=== PATIENT | male | born 1960 | race African-American/Black ===

== ENCOUNTER 2020-04-11 16:22 | Inpatient (IN) ==
[2020-04-11] MEDS ORDERED: SODIUM CHLORIDE 0.9% 1,000 ML IV STA (16:33)
[2020-04-11] MEDS ORDERED: INSULIN REGULAR 100 UNIT/ML IV STA (16:35)
[2020-04-11 18:02] LABS: Basophils % 0.4 % (0.0-0.8); Eosinophils # 0.1 10*3/uL (0.0-0.87); Eosinophils % 0.9 % (0.00-10.9); Hematocrit 38.7 VOL% (42.0-52.0); Hemoglobin 12.7 GM/DL (14.0-18.0); Immature Granulocytes % 0.4 %; Immature Granulocytes Absolute 0.04 #; Lymphocytes % 22.6 % (21.2-54.2); Mean Corpuscular HGB Conc 32.8 GM/DL (32-36); Mean Corpuscular Volume 87.6 FL (87-102); Mean Platelet Volume 10.7 FL (9.6-12.0); Monocytes % 5.9 % (1.7-12.7); Neutrophils % 69.8 % (38.7-73.9); Platelet Count 238 T/CUMM (130-400); Red Blood Count 4.42 MC/CUMM (3.8-5.5); Red Cell Distribution Width 13.9 % (9.3-17.3); White Blood Count 8.9 T/CUMM (4-12)
[2020-04-11 18:08] LABS: Bilirubin,Urine Negative (Negative); Blood, Urine Negative (Negative); Glucose,Urine (UA) >=500 mg/dL (Negative); Ketones,Urine 20 mg/dL (Negative); Mucus,Urine Occasional /LPF (Occasional); Nitrite,Urine Negative (Negative); Protein,Urine Negative; RBC,Urine 1 /HPF (0-4); Urine Appearance CLEAR (Clear); Urine Color Colorless (Yellow); Urine Urobilinogen < 2.0 EU/DL (0.2-1.0); WBC,Urine 5 /HPF (0-6)
[2020-04-11 18:22] LABS: Albumin 3.4 G/DL (3.4-5.0); Bilirubin,Total 0.8 MG/DL (0.2-1.0); Osmolality,Calculated 307.1 MOS/KG (273-304); Total Protein 7.4 G/DL (6.4-8.3)
[2020-04-11] MEDS ORDERED: GLUCAGON 1 MG VIAL IM PRN ×2 (19:06)
[2020-04-11] MEDS ORDERED: DEXTROSE 50% 25 GM/50 ML VIAL IV PRN ×2 (19:06)
[2020-04-11] MEDS ORDERED: POTASSIUM CHLORIDE RIDER 10 MEQ in PREMIX 1 EACH IV PRN (19:10)
[2020-04-11] MEDS ORDERED: hydrALAZINE 20 MG/1 ML VIAL IV PRN (19:12)
[2020-04-11] MEDS ORDERED: SODIUM CHLORIDE 0.9% 1,000 ML IV SCH (19:30)
[2020-04-11] MEDS ORDERED: SODIUM CHLORIDE 0.9% 2,000 ML IV SCH (19:51)
[2020-04-11] MEDS ORDERED: ENOXAPARIN 40 MG/0.4 ML SYRINGE SUBCUT SCH (21:00)
[2020-04-11] MEDS ORDERED: INSULIN GLARGINE 100 UNIT/ML SUBCUT SCH (21:00)
[2020-04-11] MEDS: INSULIN LISPRO 100 UNIT/ML SUBCUT SCH ×2 (22:00→23:57)
[2020-04-11 23:31] LABS: Calcium 8.8 MG/DL (8.5-10.1); Osmolality,Calculated 303.5 MOS/KG (273-304)
[2020-04-11] MEDS ORDERED: HEPARIN 5,000 UNIT/1 ML VIAL IV PRN (23:38)
[2020-04-12] MEDS ORDERED: SODIUM CHLORIDE 0.9% 2,000 ML IV ONE (00:30)
[2020-04-12] MEDS ORDERED: INSULIN GLARGINE 100 UNIT/ML SUBCUT SCH ×2 (00:30→16:55)
[2020-04-12] MEDS: INSULIN GLARGINE 100 UNIT/ML SUBCUT SCH ×2 (00:51→01:00)
[2020-04-12] MEDS: METOPROLOL SUCCINATE XL 25 MG TABLET PO SCH ×3 (01:56→21:26)
[2020-04-12] MEDS: AMITRIPTYLINE 25 MG TABLET PO SCH ×3 (01:56→21:26)
[2020-04-12] MEDS: HEPARIN DRIP 25,000 UNITS/500 ML PREMIX IV SCH ×2 (01:57→19:51)
[2020-04-12 03:14] LABS: Basophils # 0.1 10*3/uL (0.0-0.2); Basophils % 0.7 % (0.0-0.8); Eosinophils # 0.1 10*3/uL (0.0-0.87); Eosinophils % 1.4 % (0.00-10.9); Hematocrit 39.1 VOL% (42.0-52.0); Hemoglobin 12.5 GM/DL (14.0-18.0); Immature Granulocytes % 0.1 %; Immature Granulocytes Absolute 0.01 #; Lymphocytes # 2.5 10*3/uL (1.4-4.0); Lymphocytes % 33.7 % (21.2-54.2); Mean Corpuscular Volume 88.7 FL (87-102); Mean Platelet Volume 11.2 FL (9.6-12.0); Monocytes % 5.6 % (1.7-12.7); Neutrophils % 58.5 % (38.7-73.9); Platelet Count 114 T/CUMM (130-400); Red Blood Count 4.41 MC/CUMM (3.8-5.5); White Blood Count 7.4 T/CUMM (4-12)
[2020-04-12 03:35] LABS: Calcium 8.5 MG/DL (8.5-10.1); Osmolality,Calculated 291.4 MOS/KG (273-304)
[2020-04-12 03:54] LABS: Risk Ratio 4.12; Thyroid Stimulating Hormone 1.19 uIU/ml (0.358-3.74)
[2020-04-12 04:11] LABS: Anisocytosis 1+; Lymphocytes 33 % (20-55); Segmented Neutrophils 64 % (50-85); Total Cells Counted 100
[2020-04-12 04:12] LABS: Platelet Estimate Adequate
[2020-04-12] MEDS: INSULIN LISPRO 100 UNIT/ML SUBCUT SCH ×4 (08:44→21:26)
[2020-04-12] MEDS: ASPIRIN EC 81 MG TABLET PO SCH (08:44)
[2020-04-12 10:26] LABS: Calcium 8.9 MG/DL (8.5-10.1)
[2020-04-12] MEDS ORDERED: GLUCAGON 1 MG VIAL IM PRN (11:05)
[2020-04-12] MEDS ORDERED: DEXTROSE 50% 25 GM/50 ML VIAL IV PRN (11:05)
[2020-04-12 15:40] LABS: PT Patient Result 10.5 SECS (9.8-11.9)
[2020-04-12] MEDS ORDERED: INSULIN LISPRO 100 UNIT/ML SUBCUT SCH ×3 (17:00)
[2020-04-12 23:07] LABS: PT Patient Result 10.3 SECS (9.8-11.9)
[2020-04-12 23:14] LABS: Partial Thromboplastin Time 77.3 SECS (23.9-33.8)
[2020-04-13 06:50] LABS: Basophils % 0.5 % (0.0-0.8); Eosinophils # 0.1 10*3/uL (0.0-0.87); Eosinophils % 1.2 % (0.00-10.9); Hematocrit 36.1 VOL% (42.0-52.0); Immature Granulocytes % 0.5 %; Immature Granulocytes Absolute 0.03 #; Mean Corpuscular HGB Conc 33.2 GM/DL (32-36); Mean Platelet Volume 11.1 FL (9.6-12.0); Monocytes % 6.4 % (1.7-12.7); Neutrophils % 61.4 % (38.7-73.9); Platelet Count 186 T/CUMM (130-400); White Blood Count 6.6 T/CUMM (4-12)
[2020-04-13 06:58] LABS: PT Patient Result 10.4 SECS (9.8-11.9)
[2020-04-13 06:59] LABS: Partial Thromboplastin Time 67.7 SECS (23.9-33.8)
[2020-04-13 07:13] LABS: Calcium 8.5 MG/DL (8.5-10.1); Osmolality,Calculated 289.5 MOS/KG (273-304)
[2020-04-13] MEDS ORDERED: INSULIN GLARGINE 100 UNIT/ML SUBCUT SCH (07:43)
[2020-04-13] MEDS: METOPROLOL SUCCINATE XL 25 MG TABLET PO SCH ×2 (09:25→20:18)
[2020-04-13] MEDS: INSULIN LISPRO 100 UNIT/ML SUBCUT SCH ×7 (09:25→20:22)
[2020-04-13] MEDS: ASPIRIN EC 81 MG TABLET PO SCH (09:25)
[2020-04-13] MEDS: AMITRIPTYLINE 25 MG TABLET PO SCH ×2 (09:25→20:20)
[2020-04-13 13:27] LABS: PT Patient Result 10.3 SECS (9.8-11.9)
[2020-04-13 13:28] LABS: Partial Thromboplastin Time 63.5 SECS (23.9-33.8)
[2020-04-13] MEDS: oxyCODONE/ACETAMINOPHEN 5-325 MG TABLET PO PRN (20:16)
[2020-04-14] MEDS: HEPARIN DRIP 25,000 UNITS/500 ML PREMIX IV SCH (04:08)
[2020-04-14 04:16] LABS: Basophils % 0.5 % (0.0-0.8); Eosinophils # 0.1 10*3/uL (0.0-0.87); Eosinophils % 0.8 % (0.00-10.9); Hematocrit 36.8 VOL% (42.0-52.0); Hemoglobin 11.9 GM/DL (14.0-18.0); Immature Granulocytes % 0.5 %; Immature Granulocytes Absolute 0.04 #; Lymphocytes # 1.3 10*3/uL (1.4-4.0); Lymphocytes % 16.6 % (21.2-54.2); Mean Corpuscular HGB Conc 32.3 GM/DL (32-36); Mean Corpuscular Volume 88.2 FL (87-102); Mean Platelet Volume 10.2 FL (9.6-12.0); Monocytes % 7.9 % (1.7-12.7); Neutrophils % 73.7 % (38.7-73.9); Platelet Count 167 T/CUMM (130-400); Red Blood Count 4.17 MC/CUMM (3.8-5.5); Red Cell Distribution Width 13.8 % (9.3-17.3)
[2020-04-14 04:38] LABS: Calcium 8.8 MG/DL (8.5-10.1); Osmolality,Calculated 281.8 MOS/KG (273-304)
[2020-04-14] MEDS: oxyCODONE/ACETAMINOPHEN 5-325 MG TABLET PO PRN ×2 (05:19→22:12)
[2020-04-14 06:08] LABS: Anisocytosis 1+; Platelet Estimate Normal
[2020-04-14] MEDS ORDERED: MAGNESIUM HYDROXIDE SUSP 30 ML UDCUP PO PRN (08:58)
[2020-04-14] MEDS ORDERED: BISACODYL 5 MG TABLET PO PRN (08:58)
[2020-04-14] MEDS: INSULIN LISPRO 100 UNIT/ML SUBCUT SCH ×7 (08:59→22:14)
[2020-04-14] MEDS: ASPIRIN EC 81 MG TABLET PO SCH (08:59)
[2020-04-14] MEDS: METOPROLOL SUCCINATE XL 25 MG TABLET PO SCH ×2 (08:59→22:12)
[2020-04-14] MEDS: AMITRIPTYLINE 25 MG TABLET PO SCH ×2 (08:59→22:12)
[2020-04-14] MEDS ORDERED: FAMOTIDINE 20 MG/2 ML VIAL IV ONE (09:30)
[2020-04-14] MEDS ORDERED: METOCLOPRAMIDE 10 MG/2 ML VIAL IV ONE (09:31)
[2020-04-14 09:36] LABS: PT Patient Result 11.2 SECS (9.8-11.9); Partial Thromboplastin Time 35.9 SECS (23.9-33.8)
[2020-04-14] MEDS ORDERED: CITRIC ACID/SODIUM CITRATE 30 ML UDCUP PO SCH (10:00)
[2020-04-14] MEDS ORDERED: THROMBIN TOPICAL (RECOMBINANT) 5,000 UNIT VIAL TOP ONE (12:42)
[2020-04-14] MEDS ORDERED: HEPARIN 5,000 UNIT/1 ML VIAL ONE ×2 (12:42→15:37)
[2020-04-14] MEDS ORDERED: CITRIC ACID/SODIUM CITRATE 30 ML UDCUP PO ONE (13:30)
[2020-04-14] MEDS: VANCOMYCIN INJ 1,000 MG in SODIUM CHLORIDE 0.9% 250 ML IV ONE ×2 (17:02→17:37)
[2020-04-14 17:39] LABS: Bilirubin,Urine Negative (Negative); Blood, Urine Moderate mg/dL (Negative); Glucose,Urine (UA) >=500 mg/dL (Negative); Ketones,Urine 5 mg/dL (Negative); Nitrite,Urine Negative (Negative); Protein,Urine Negative; Squamous Epithelial Cell,Urine Occasional /HPF (0-10); Urine Appearance CLEAR (Clear); Urine Color Yellow (Yellow); Urine Specific Gravity 1.017 (1.001-1.035); Urine Urobilinogen < 2.0 EU/DL (0.2-1.0); WBC,Urine 6 /HPF (0-6)
[2020-04-14] MEDS ORDERED: HEPARIN 10,000 UNIT/10 ML VIAL ONE (17:46)
[2020-04-14] MEDS ORDERED: propofoL 200 MG/20 ML VIAL IV ONE (17:46)
[2020-04-14] MEDS ORDERED: SEVOFLURANE 1 UNIT/15 MINUTE INH ONE (17:46)
[2020-04-14] MEDS ORDERED: LIDOCAINE 2% 5 ML VIAL ONE (17:46)
[2020-04-14] MEDS ORDERED: METOPROLOL TARTRATE 5 MG/5 ML VIAL IV ONE (17:47)
[2020-04-14] MEDS ORDERED: GLYCOPYRROLATE 0.4 MG/2 ML VIAL ONE (17:47)
[2020-04-14] MEDS ORDERED: fentaNYL 100 MCG/2 ML VIAL ONE (17:47)
[2020-04-14] MEDS ORDERED: FUROSEMIDE 20 MG/2 ML VIAL ONE (17:47)
[2020-04-14] MEDS ORDERED: SUCCINYLCHOLINE 200 MG/10 ML VIAL ONE (17:47)
[2020-04-14] MEDS ORDERED: ONDANSETRON 4 MG/2 ML VIAL ONE (17:47)
[2020-04-14] MEDS ORDERED: ROCURONIUM 100 MG/10 ML VIAL IV ONE (17:47)
[2020-04-14] MEDS ORDERED: PHENYLEPHRINE 10 MG/1 ML VIAL IV ONE (17:47)
[2020-04-14] MEDS ORDERED: ACETAMINOPHEN 1,000 MG/100 ML VIAL IV ONE (17:47)
[2020-04-14] MEDS ORDERED: ALBUMIN 5% 12.5 GM/250 ML VIAL IV ONE (17:48)
[2020-04-14] MEDS ORDERED: NEOSTIGMINE 10 MG/10 ML VIAL ONE (17:48)
[2020-04-14] MEDS ORDERED: LACTATED RINGERS 2,000 ML IV ONE (17:48)
[2020-04-14] MEDS ORDERED: SODIUM CHLORIDE 0.9% 250 ML IV ONE (17:48)
[2020-04-14] MEDS ORDERED: SODIUM CHLORIDE 0.9% 1,000 ML IV ONE (17:48)
[2020-04-14 18:39] LABS: Hematocrit 33.4 VOL% (42.0-52.0)
[2020-04-14] MEDS: LACTATED RINGERS 1,000 ML IV SCH (18:48)
[2020-04-14] MEDS ORDERED: INSULIN GLARGINE 100 UNIT/ML SUBCUT SCH (21:00)
[2020-04-14] MEDS: DOCUSATE SODIUM 100 MG CAPSULE PO SCH (22:12)
[2020-04-15 05:45] LABS: Basophils % 0.5 % (0.0-0.8); Eosinophils # 0.1 10*3/uL (0.0-0.87); Eosinophils % 0.9 % (0.00-10.9); Hematocrit 34.3 VOL% (42.0-52.0); Hemoglobin 10.8 GM/DL (14.0-18.0); Immature Granulocytes % 0.6 %; Immature Granulocytes Absolute 0.05 #; Lymphocytes # 1.5 10*3/uL (1.4-4.0); Mean Corpuscular HGB Conc 31.5 GM/DL (32-36); Mean Corpuscular Volume 89.6 FL (87-102); Mean Platelet Volume 11.1 FL (9.6-12.0); Monocytes % 8.9 % (1.7-12.7); Neutrophils % 71.1 % (38.7-73.9); Platelet Count 156 T/CUMM (130-400); Red Blood Count 3.83 MC/CUMM (3.8-5.5); Red Cell Distribution Width 14.2 % (9.3-17.3); White Blood Count 8.1 T/CUMM (4-12)
[2020-04-15 06:08] LABS: Band Neutrophils 2 % (0-10); Eosinophils 1 % (0-10); Lymphocytes 22 % (20-55); Nucleated Red Blood Cells 1 (0-5); Platelet Estimate Adequate; Segmented Neutrophils 65 % (50-85); Total Cells Counted 100
[2020-04-15 06:09] LABS: Hypochromasia 1+; Microcytosis Slight
[2020-04-15 06:20] LABS: Calcium 8.6 MG/DL (8.5-10.1); Osmolality,Calculated 281.5 MOS/KG (273-304)
[2020-04-15] MEDS: LACTATED RINGERS 1,000 ML IV SCH (08:51)
[2020-04-15] MEDS: INSULIN LISPRO 100 UNIT/ML SUBCUT SCH ×7 (09:24→21:54)
[2020-04-15] MEDS: ENOXAPARIN 40 MG/0.4 ML SYRINGE SUBCUT SCH (09:25)
[2020-04-15] MEDS: ASPIRIN CHEW 81 MG TABLET PO SCH (09:26)
[2020-04-15] MEDS: METOPROLOL SUCCINATE XL 25 MG TABLET PO SCH ×2 (09:26→21:54)
[2020-04-15] MEDS: AMITRIPTYLINE 25 MG TABLET PO SCH ×2 (09:26→21:54)
[2020-04-15] MEDS: DOCUSATE SODIUM 100 MG CAPSULE PO SCH ×2 (09:26→21:54)
[2020-04-15] MEDS: HYDROmorphone 2 MG/1 ML VIAL IV PRN ×3 (20:41→23:23)
[2020-04-15] MEDS: INSULIN GLARGINE 100 UNIT/ML SUBCUT SCH (21:55)
[2020-04-16] MEDS: HYDROmorphone 2 MG/1 ML VIAL IV PRN ×5 (01:16→21:45)
[2020-04-16 05:59] LABS: Basophils % 0.3 % (0.0-0.8); Eosinophils # 0.1 10*3/uL (0.0-0.87); Eosinophils % 1.3 % (0.00-10.9); Hematocrit 30.9 VOL% (42.0-52.0); Hemoglobin 9.7 GM/DL (14.0-18.0); Immature Granulocytes % 0.8 %; Immature Granulocytes Absolute 0.07 #; Lymphocytes # 1.1 10*3/uL (1.4-4.0); Mean Corpuscular HGB Conc 31.4 GM/DL (32-36); Mean Corpuscular Volume 90.1 FL (87-102); Mean Platelet Volume 11.3 FL (9.6-12.0); Monocytes % 11.9 % (1.7-12.7); Neutrophils % 72.7 % (38.7-73.9); Platelet Count 167 T/CUMM (130-400); Red Blood Count 3.43 MC/CUMM (3.8-5.5); Red Cell Distribution Width 14.2 % (9.3-17.3); White Blood Count 8.7 T/CUMM (4-12)
[2020-04-16 06:22] LABS: Calcium 8.4 MG/DL (8.5-10.1); Osmolality,Calculated 279.5 MOS/KG (273-304)
[2020-04-16 06:42] LABS: Band Neutrophils 17 % (0-10); Eosinophils 3 % (0-10); Lymphocytes 11 % (20-55); Platelet Estimate Normal; Segmented Neutrophils 56 % (50-85); Total Cells Counted 100
[2020-04-16 06:43] LABS: Anisocytosis 1+; Polychromasia Slight
[2020-04-16] MEDS: INSULIN LISPRO 100 UNIT/ML SUBCUT SCH ×7 (09:15→21:44)
[2020-04-16] MEDS: ENOXAPARIN 40 MG/0.4 ML SYRINGE SUBCUT SCH (09:17)
[2020-04-16] MEDS: DOCUSATE SODIUM 100 MG CAPSULE PO SCH ×2 (09:18→21:43)
[2020-04-16] MEDS: METOPROLOL SUCCINATE XL 25 MG TABLET PO SCH ×2 (09:18→21:43)
[2020-04-16] MEDS: ASPIRIN CHEW 81 MG TABLET PO SCH (09:18)
[2020-04-16] MEDS: AMITRIPTYLINE 25 MG TABLET PO SCH ×2 (09:18→21:43)
[2020-04-16] MEDS: ONDANSETRON 4 MG/2 ML VIAL IV PRN ×2 (10:58→15:46)
[2020-04-16] MEDS: RIVAROXABAN 2.5 MG TABLET PO SCH (21:43)
[2020-04-16] MEDS: INSULIN GLARGINE 100 UNIT/ML SUBCUT SCH (21:44)
[2020-04-16 23:41] LABS: HIT Interpretation Negative (Negative)
[2020-04-17] MEDS: HYDROmorphone 2 MG/1 ML VIAL IV PRN ×3 (00:04→04:53)
[2020-04-17 05:11] LABS: Basophils % 0.2 % (0.0-0.8); Eosinophils # 0.1 10*3/uL (0.0-0.87); Eosinophils % 1.4 % (0.00-10.9); Hematocrit 32.1 VOL% (42.0-52.0); Hemoglobin 10.1 GM/DL (14.0-18.0); Immature Granulocytes % 0.6 %; Immature Granulocytes Absolute 0.06 #; Lymphocytes # 1.5 10*3/uL (1.4-4.0); Lymphocytes % 15.9 % (21.2-54.2); Mean Corpuscular HGB Conc 31.5 GM/DL (32-36); Mean Corpuscular Volume 89.9 FL (87-102); Mean Platelet Volume 11.4 FL (9.6-12.0); Monocytes % 11.7 % (1.7-12.7); Neutrophils % 70.2 % (38.7-73.9); Platelet Count 156 T/CUMM (130-400); Red Blood Count 3.57 MC/CUMM (3.8-5.5); Red Cell Distribution Width 14.2 % (9.3-17.3); White Blood Count 9.5 T/CUMM (4-12)
[2020-04-17 05:30] LABS: Band Neutrophils 2 % (0-10); Eosinophils 2 % (0-10); Hypochromasia 1+; Lymphocytes 18 % (20-55); Platelet Estimate Adequate; Segmented Neutrophils 67 % (50-85); Total Cells Counted 100
[2020-04-17 05:31] LABS: Microcytosis Slight; Ovalocytes Slight
[2020-04-17 06:08] LABS: Calcium 8.9 MG/DL (8.5-10.1); Osmolality,Calculated 272.8 MOS/KG (273-304)
[2020-04-17] MEDS: ASPIRIN CHEW 81 MG TABLET PO SCH (09:45)
[2020-04-17] MEDS: METOPROLOL SUCCINATE XL 25 MG TABLET PO SCH (09:45)
[2020-04-17] MEDS: AMITRIPTYLINE 25 MG TABLET PO SCH (09:47)
[2020-04-17] MEDS: oxyCODONE/ACETAMINOPHEN 5-325 MG TABLET PO PRN (09:47)
[2020-04-17] MEDS: DOCUSATE SODIUM 100 MG CAPSULE PO SCH (09:47)
[2020-04-17] MEDS: ENOXAPARIN 40 MG/0.4 ML SYRINGE SUBCUT SCH (09:49)
[2020-04-17] MEDS: RIVAROXABAN 2.5 MG TABLET PO SCH (09:51)
[2020-04-17] MEDS: INSULIN LISPRO 100 UNIT/ML SUBCUT SCH ×4 (10:46→14:26)
[2020-04-17 12:08] VITALS: BP 140/94
== END 2020-04-17 15:01 | DRG 271 ==
LOC: EDBD → EDUNIT# → EDSEX → N.ED 16:22 → N.EDINP 19:06 → SUATTDRO 19:06 → N.TELES 04-12 00:08
PROVIDERS: ADMIT Internal Medicine; ATTEND Internal Medicine Geriatric Medicine
PROC: FASCLOA (2020-04-14 13:19)

== ENCOUNTER 2020-05-15 08:58 | Inpatient (IN) ==
[2020-05-15] MEDS ORDERED: ONDANSETRON 4 MG/2 ML VIAL IV PRN (10:05)
[2020-05-15] MEDS ORDERED: DEXTROSE 50% 25 GM/50 ML VIAL IV PRN (10:05)
[2020-05-15] MEDS ORDERED: GLUCAGON 1 MG VIAL IM PRN (10:05)
[2020-05-15] MEDS ORDERED: ACETAMINOPHEN 325 MG TABLET PO PRN (10:05)
[2020-05-15] MEDS ORDERED: BISACODYL 10 MG SUPP RECTAL PRN (10:09)
[2020-05-15] MEDS ORDERED: ALBUTEROL/IPRATROPIUM 3 ML NEB RESP TX PRN (10:09)
[2020-05-15] MEDS ORDERED: ONDANSETRON 4 MG TABLET PO PRN (10:09)
[2020-05-15] MEDS ORDERED: NITROGLYCERIN SL 0.4 MG TABLET SL PRN (10:09)
[2020-05-15] MEDS ORDERED: MAGNESIUM HYDROXIDE SUSP 30 ML UDCUP PO PRN (10:09)
[2020-05-15 10:47] LABS: Bacteria,Urine Occasional /HPF (Few); Bilirubin,Urine Negative (Negative); Blood, Urine Negative (Negative); Glucose,Urine (UA) Negative (Negative); Ketones,Urine Negative (Negative); Mucus,Urine Occasional /LPF (Occasional); Nitrite,Urine Negative (Negative); Protein,Urine Negative; Squamous Epithelial Cell,Urine Occasional /HPF (0-10); Urine Appearance CLEAR (Clear); Urine Color Yellow (Yellow); Urine Specific Gravity 1.011 (1.001-1.035); Urine Urobilinogen < 2.0 EU/DL (0.2-1.0); WBC,Urine <1 /HPF (0-6)
[2020-05-15 10:56] LABS: Barbiturates Screen,Urine Negative (Negative); Benzodiazepines Screen,Urine Negative (Negative); Cannabinoid Screen,Urine Negative (Negative); Opiate Screen,Urine Positive (Negative); Phencyclidine Screen,Urine Negative (Negative)
[2020-05-15 11:21] LABS: Basophils % 0.2 % (0.0-0.8); Eosinophils # 0.2 10*3/uL (0.0-0.87); Eosinophils % 1.7 % (0.00-10.9); Hematocrit 24.8 VOL% (42.0-52.0); Hemoglobin 7.6 GM/DL (14.0-18.0); Immature Granulocytes % 0.8 %; Immature Granulocytes Absolute 0.11 #; Lymphocytes # 1.6 10*3/uL (1.4-4.0); Lymphocytes % 11.4 % (21.2-54.2); Mean Corpuscular HGB Conc 30.6 GM/DL (32-36); Mean Corpuscular Volume 86.7 FL (87-102); Mean Platelet Volume 8.3 FL (9.6-12.0); Monocytes % 6.2 % (1.7-12.7); Neutrophils % 79.7 % (38.7-73.9); Platelet Count 544 T/CUMM (130-400); Red Blood Count 2.86 MC/CUMM (3.8-5.5); Red Cell Distribution Width 16.1 % (9.3-17.3); White Blood Count 14.3 T/CUMM (4-12)
[2020-05-15] MEDS ORDERED: INSULIN LISPRO 100 UNIT/ML SUBCUT SCH (11:30)
[2020-05-15 11:41] LABS: Eosinophils 3 % (0-10); Lymphocytes 9 % (20-55); Platelet Estimate Adequate; Segmented Neutrophils 83 % (50-85); Total Cells Counted 100
[2020-05-15 11:42] LABS: Hypochromasia 2+; Microcytosis 1+
[2020-05-15 13:15] LABS: Alanine Aminotransferase 36 U/L (16-61); Alkaline Phosphatase 93 U/L (45-117); Aspartate Amino Transferase 21 U/L (0-37); Bilirubin,Total < 0.39 MG/DL (0.2-1.0); Blood Urea Nitrogen 41 MG/DL (7-18); Calcium 9.2 MG/DL (8.5-10.1); Estimated Glom Filtration Rate 66 ML/MIN; Glucose 112 MG/DL (74-106); Osmolality,Calculated 280.1 MOS/KG (273-304); Total Protein 8.5 G/DL (6.4-8.3)
[2020-05-15] MEDS: INSULIN LISPRO 100 UNIT/ML SUBCUT SCH ×2 (16:17→18:23)
[2020-05-15] MEDS: INSULIN REGULAR 100 UNIT/ML SUBCUT SCH ×3 (16:17→20:13)
[2020-05-15] MEDS: GABAPENTIN 300 MG CAPSULE PO SCH ×2 (18:22→21:15)
[2020-05-15] MEDS: metFORMIN 500 MG TABLET PO SCH ×2 (18:22→18:27)
[2020-05-15] MEDS: SODIUM CHLORIDE 0.9% 1,000 ML IV SCH (18:31)
[2020-05-15] MEDS: INSULIN GLARGINE 100 UNIT/ML SUBCUT SCH (20:13)
[2020-05-15] MEDS: RIVAROXABAN 2.5 MG TABLET PO SCH (21:15)
[2020-05-15] MEDS: METOPROLOL SUCCINATE XL 25 MG TABLET PO SCH (21:15)
[2020-05-15] MEDS: DOCUSATE SODIUM 100 MG CAPSULE PO SCH (21:15)
[2020-05-16] MEDS ORDERED: PANTOPRAZOLE 40 MG TABLET PO SCH (09:00)
[2020-05-16] MEDS ORDERED: BUPIVACAINE MPF 0.25% 30 ML VIAL ONE (10:36)
[2020-05-16] MEDS ORDERED: LIDOCAINE 1%/EPI INJ 20 ML VIAL ONE (10:36)
[2020-05-16] MEDS: INSULIN REGULAR 100 UNIT/ML SUBCUT SCH ×4 (10:45→21:47)
[2020-05-16] MEDS: ASPIRIN EC 81 MG TABLET PO SCH (10:46)
[2020-05-16] MEDS: INSULIN LISPRO 100 UNIT/ML SUBCUT SCH ×4 (10:46→17:55)
[2020-05-16] MEDS: DOCUSATE SODIUM 100 MG CAPSULE PO SCH ×2 (10:46→21:21)
[2020-05-16] MEDS: glipiZIDE 5 MG TABLET PO SCH (10:46)
[2020-05-16] MEDS: metFORMIN 500 MG TABLET PO SCH ×2 (10:46→17:55)
[2020-05-16] MEDS: POLYETHYLENE GLYCOL POWDER 17 GM PACK PO SCH (10:47)
[2020-05-16] MEDS: RIVAROXABAN 2.5 MG TABLET PO SCH (10:47)
[2020-05-16] MEDS: METOPROLOL SUCCINATE XL 25 MG TABLET PO SCH ×2 (10:47→21:21)
[2020-05-16] MEDS: SODIUM CHLORIDE 0.9% 1,000 ML IV SCH (10:47)
[2020-05-16] MEDS: lisinopriL 2.5 MG TABLET PO SCH (10:47)
[2020-05-16] MEDS: PANTOPRAZOLE 40 MG TABLET PO SCH (10:47)
[2020-05-16] MEDS: GABAPENTIN 300 MG CAPSULE PO SCH ×3 (10:47→21:21)
[2020-05-16] MEDS: INSULIN GLARGINE 100 UNIT/ML SUBCUT SCH (21:48)
[2020-05-16] MEDS: ACETAMINOPHEN 325 MG TABLET PO PRN (22:06)
[2020-05-17] MEDS: SODIUM CHLORIDE 0.9% 1,000 ML IV SCH ×2 (05:22→21:01)
[2020-05-17] MEDS: INSULIN LISPRO 100 UNIT/ML SUBCUT SCH ×4 (09:41→17:57)
[2020-05-17] MEDS: ASPIRIN EC 81 MG TABLET PO SCH (09:43)
[2020-05-17] MEDS: PANTOPRAZOLE 40 MG TABLET PO SCH (09:43)
[2020-05-17] MEDS: ACETAMINOPHEN 325 MG TABLET PO PRN (09:43)
[2020-05-17] MEDS: METOPROLOL SUCCINATE XL 25 MG TABLET PO SCH ×2 (09:43→21:03)
[2020-05-17] MEDS: MULTIVITAMIN (CENTRUM) TABLET PO SCH (09:43)
[2020-05-17] MEDS: POLYETHYLENE GLYCOL POWDER 17 GM PACK PO SCH (09:44)
[2020-05-17] MEDS: GABAPENTIN 300 MG CAPSULE PO SCH ×3 (09:44→21:03)
[2020-05-17] MEDS: metFORMIN 500 MG TABLET PO SCH ×2 (09:44→17:57)
[2020-05-17] MEDS: DOCUSATE SODIUM 100 MG CAPSULE PO SCH ×2 (09:44→21:03)
[2020-05-17] MEDS: glipiZIDE 5 MG TABLET PO SCH (09:44)
[2020-05-17] MEDS: INSULIN REGULAR 100 UNIT/ML SUBCUT SCH ×4 (09:45→21:06)
[2020-05-17] MEDS: lisinopriL 2.5 MG TABLET PO SCH (12:55)
[2020-05-17] MEDS: INSULIN GLARGINE 100 UNIT/ML SUBCUT SCH (21:00)
[2020-05-18] MEDS: METOPROLOL SUCCINATE XL 25 MG TABLET PO SCH ×2 (08:32→21:14)
[2020-05-18] MEDS: PANTOPRAZOLE 40 MG TABLET PO SCH (08:32)
[2020-05-18] MEDS: metFORMIN 500 MG TABLET PO SCH ×2 (08:32→16:13)
[2020-05-18] MEDS: glipiZIDE 5 MG TABLET PO SCH (08:32)
[2020-05-18] MEDS: ASPIRIN EC 81 MG TABLET PO SCH (08:33)
[2020-05-18] MEDS: INSULIN REGULAR 100 UNIT/ML SUBCUT SCH ×4 (08:33→21:13)
[2020-05-18] MEDS: MULTIVITAMIN (CENTRUM) TABLET PO SCH (08:33)
[2020-05-18] MEDS: DOCUSATE SODIUM 100 MG CAPSULE PO SCH ×2 (08:33→21:13)
[2020-05-18] MEDS: GABAPENTIN 300 MG CAPSULE PO SCH ×3 (08:33→21:14)
[2020-05-18] MEDS: INSULIN LISPRO 100 UNIT/ML SUBCUT SCH ×3 (08:33→16:13)
[2020-05-18] MEDS: lisinopriL 2.5 MG TABLET PO SCH (08:33)
[2020-05-18] MEDS: POLYETHYLENE GLYCOL POWDER 17 GM PACK PO SCH (08:34)
[2020-05-18] MEDS: SODIUM CHLORIDE 0.9% 1,000 ML IV SCH (15:12)
[2020-05-18] MEDS: INSULIN GLARGINE 100 UNIT/ML SUBCUT SCH (21:18)
[2020-05-19] MEDS: ACETAMINOPHEN 325 MG TABLET PO PRN (01:10)
[2020-05-19 07:31] LABS: Basophils % 0.5 % (0.0-0.8); Eosinophils # 0.3 10*3/uL (0.0-0.87); Eosinophils % 3.5 % (0.00-10.9); Hematocrit 25.6 VOL% (42.0-52.0); Hemoglobin 7.8 GM/DL (14.0-18.0); Immature Granulocytes % 0.5 %; Immature Granulocytes Absolute 0.04 #; Lymphocytes % 22.3 % (21.2-54.2); Mean Corpuscular HGB Conc 30.5 GM/DL (32-36); Mean Platelet Volume 8.5 FL (9.6-12.0); Monocytes % 7.5 % (1.7-12.7); Neutrophils % 65.7 % (38.7-73.9); Platelet Count 508 T/CUMM (130-400); Red Blood Count 2.91 MC/CUMM (3.8-5.5); Red Cell Distribution Width 15.9 % (9.3-17.3); White Blood Count 8.8 T/CUMM (4-12)
[2020-05-19 08:01] LABS: Calcium 9.4 MG/DL (8.5-10.1); Osmolality,Calculated 274.7 MOS/KG (273-304)
[2020-05-19] MEDS: SODIUM CHLORIDE 0.9% 1,000 ML IV SCH (10:45)
[2020-05-19] MEDS: MULTIVITAMIN (CENTRUM) TABLET PO SCH (10:46)
[2020-05-19] MEDS: metFORMIN 500 MG TABLET PO SCH ×2 (10:46→16:22)
[2020-05-19] MEDS: INSULIN REGULAR 100 UNIT/ML SUBCUT SCH ×4 (10:46→20:56)
[2020-05-19] MEDS: DOCUSATE SODIUM 100 MG CAPSULE PO SCH ×2 (10:46→20:42)
[2020-05-19] MEDS: ASPIRIN EC 81 MG TABLET PO SCH (10:46)
[2020-05-19] MEDS: INSULIN LISPRO 100 UNIT/ML SUBCUT SCH ×3 (10:46→16:23)
[2020-05-19] MEDS: GABAPENTIN 300 MG CAPSULE PO SCH ×3 (10:47→20:57)
[2020-05-19] MEDS: POLYETHYLENE GLYCOL POWDER 17 GM PACK PO SCH (10:47)
[2020-05-19] MEDS: glipiZIDE 5 MG TABLET PO SCH (10:47)
[2020-05-19] MEDS: METOPROLOL SUCCINATE XL 25 MG TABLET PO SCH ×2 (10:47→20:58)
[2020-05-19] MEDS: lisinopriL 2.5 MG TABLET PO SCH (10:47)
[2020-05-19] MEDS: PANTOPRAZOLE 40 MG TABLET PO SCH (10:47)
[2020-05-19] MEDS: INSULIN GLARGINE 100 UNIT/ML SUBCUT SCH (20:57)
[2020-05-20] MEDS: SODIUM CHLORIDE 0.9% 1,000 ML IV SCH ×2 (03:52→17:05)
[2020-05-20] MEDS: INSULIN REGULAR 100 UNIT/ML SUBCUT SCH ×4 (07:37→21:54)
[2020-05-20 09:03] LABS: Basophils % 0.4 % (0.0-0.8); Eosinophils # 0.3 10*3/uL (0.0-0.87); Eosinophils % 3.3 % (0.00-10.9); Hematocrit 25.8 VOL% (42.0-52.0); Hemoglobin 7.9 GM/DL (14.0-18.0); Immature Granulocytes % 0.4 %; Immature Granulocytes Absolute 0.04 #; Lymphocytes # 1.9 10*3/uL (1.4-4.0); Lymphocytes % 19.2 % (21.2-54.2); Mean Corpuscular HGB Conc 30.6 GM/DL (32-36); Mean Corpuscular Volume 87.8 FL (87-102); Mean Platelet Volume 8.5 FL (9.6-12.0); Monocytes % 6.4 % (1.7-12.7); Neutrophils % 70.3 % (38.7-73.9); Platelet Count 498 T/CUMM (130-400); Red Blood Count 2.94 MC/CUMM (3.8-5.5); Red Cell Distribution Width 16.2 % (9.3-17.3); White Blood Count 9.8 T/CUMM (4-12)
[2020-05-20] MEDS ORDERED: ceFAZolin 2,000 MG in PREMIX 1 EACH IV ONE (09:07)
[2020-05-20] MEDS: ASPIRIN EC 81 MG TABLET PO SCH (09:13)
[2020-05-20] MEDS: MULTIVITAMIN (CENTRUM) TABLET PO SCH (09:13)
[2020-05-20] MEDS: INSULIN LISPRO 100 UNIT/ML SUBCUT SCH ×3 (09:13→16:35)
[2020-05-20] MEDS: lisinopriL 2.5 MG TABLET PO SCH (09:14)
[2020-05-20] MEDS: glipiZIDE 5 MG TABLET PO SCH (09:14)
[2020-05-20] MEDS: METOPROLOL SUCCINATE XL 25 MG TABLET PO SCH ×2 (09:14→21:11)
[2020-05-20] MEDS: PANTOPRAZOLE 40 MG TABLET PO SCH (09:14)
[2020-05-20] MEDS: GABAPENTIN 300 MG CAPSULE PO SCH ×3 (09:14→21:11)
[2020-05-20] MEDS: DOCUSATE SODIUM 100 MG CAPSULE PO SCH ×2 (09:14→21:11)
[2020-05-20] MEDS: POLYETHYLENE GLYCOL POWDER 17 GM PACK PO SCH (09:14)
[2020-05-20] MEDS: metFORMIN 500 MG TABLET PO SCH ×2 (09:39→16:30)
[2020-05-20] MEDS ORDERED: BUPIVACAINE 0.5% 50 ML VIAL ONE (12:29)
[2020-05-20] MEDS ORDERED: DEXTROSE 50% 25 GM/50 ML VIAL IV PRN (13:14)
[2020-05-20] MEDS ORDERED: fentaNYL 100 MCG/2 ML VIAL ONE (13:29)
[2020-05-20] MEDS ORDERED: ONDANSETRON 4 MG/2 ML VIAL ONE (13:29)
[2020-05-20] MEDS ORDERED: propofoL 200 MG/20 ML VIAL IV ONE (13:29)
[2020-05-20] MEDS ORDERED: PHENYLEPHRINE 1 MG/10 ML SYRINGE IV ONE (13:29)
[2020-05-20] MEDS ORDERED: SEVOFLURANE 1 UNIT/15 MINUTE INH ONE (13:29)
[2020-05-20] MEDS ORDERED: ETOMIDATE 40 MG/20 ML VIAL IV ONE (13:29)
[2020-05-20] MEDS ORDERED: LIDOCAINE 2% 5 ML VIAL ONE (13:29)
[2020-05-20] MEDS ORDERED: HYDROmorphone 2 MG/1 ML VIAL ONE (13:30)
[2020-05-20] MEDS: HYDROmorphone 2 MG/1 ML VIAL IV PRN ×4 (13:30→23:21)
[2020-05-20] MEDS: INSULIN GLARGINE 100 UNIT/ML SUBCUT SCH (21:56)
[2020-05-21 06:06] LABS: Basophils # 0.1 10*3/uL (0.0-0.2); Basophils % 0.5 % (0.0-0.8); Eosinophils # 0.4 10*3/uL (0.0-0.87); Eosinophils % 3.9 % (0.00-10.9); Hematocrit 24.3 VOL% (42.0-52.0); Hemoglobin 7.4 GM/DL (14.0-18.0); Immature Granulocytes % 0.4 %; Immature Granulocytes Absolute 0.04 #; Lymphocytes # 1.7 10*3/uL (1.4-4.0); Lymphocytes % 18.3 % (21.2-54.2); Mean Corpuscular HGB Conc 30.5 GM/DL (32-36); Mean Corpuscular Volume 88.7 FL (87-102); Mean Platelet Volume 8.6 FL (9.6-12.0); Neutrophils % 70.9 % (38.7-73.9); Platelet Count 473 T/CUMM (130-400); Red Blood Count 2.74 MC/CUMM (3.8-5.5); Red Cell Distribution Width 16.4 % (9.3-17.3); White Blood Count 9.1 T/CUMM (4-12)
[2020-05-21 06:28] LABS: Band Neutrophils 1 % (0-10); Eosinophils 4 % (0-10); Lymphocytes 26 % (20-55); Platelet Estimate Adequate; Segmented Neutrophils 65 % (50-85); Total Cells Counted 100
[2020-05-21 06:29] LABS: Hypochromasia 2+; Microcytosis 1+
[2020-05-21] MEDS: INSULIN REGULAR 100 UNIT/ML SUBCUT SCH ×4 (08:12→21:33)
[2020-05-21] MEDS: ASPIRIN EC 81 MG TABLET PO SCH (10:28)
[2020-05-21] MEDS: metFORMIN 500 MG TABLET PO SCH ×2 (10:28→18:13)
[2020-05-21] MEDS: INSULIN LISPRO 100 UNIT/ML SUBCUT SCH ×3 (10:28→18:06)
[2020-05-21] MEDS: lisinopriL 2.5 MG TABLET PO SCH (10:29)
[2020-05-21] MEDS: GABAPENTIN 300 MG CAPSULE PO SCH ×3 (10:29→21:31)
[2020-05-21] MEDS: POLYETHYLENE GLYCOL POWDER 17 GM PACK PO SCH (10:29)
[2020-05-21] MEDS: MULTIVITAMIN (CENTRUM) TABLET PO SCH (10:29)
[2020-05-21] MEDS: glipiZIDE 5 MG TABLET PO SCH (10:29)
[2020-05-21] MEDS: METOPROLOL SUCCINATE XL 25 MG TABLET PO SCH ×2 (10:29→21:31)
[2020-05-21] MEDS: PANTOPRAZOLE 40 MG TABLET PO SCH (10:29)
[2020-05-21] MEDS: DOCUSATE SODIUM 100 MG CAPSULE PO SCH ×2 (10:29→21:31)
[2020-05-21] MEDS: HYDROmorphone 2 MG/1 ML VIAL IV PRN (14:17)
[2020-05-21] MEDS: SODIUM CHLORIDE 0.9% 1,000 ML IV SCH (16:23)
[2020-05-21] MEDS: INSULIN GLARGINE 100 UNIT/ML SUBCUT SCH (21:33)
[2020-05-22] MEDS: SODIUM CHLORIDE 0.9% 1,000 ML IV SCH ×2 (02:53→19:32)
[2020-05-22] MEDS: HYDROmorphone 2 MG/1 ML VIAL IV PRN ×4 (09:21→19:30)
[2020-05-22] MEDS: INSULIN REGULAR 100 UNIT/ML SUBCUT SCH ×5 (09:22→22:29)
[2020-05-22] MEDS: POLYETHYLENE GLYCOL POWDER 17 GM PACK PO SCH (09:22)
[2020-05-22] MEDS: INSULIN LISPRO 100 UNIT/ML SUBCUT SCH ×3 (09:22→18:05)
[2020-05-22] MEDS: PANTOPRAZOLE 40 MG TABLET PO SCH (09:23)
[2020-05-22] MEDS: GABAPENTIN 300 MG CAPSULE PO SCH ×3 (09:23→22:26)
[2020-05-22] MEDS: DOCUSATE SODIUM 100 MG CAPSULE PO SCH ×2 (09:23→22:26)
[2020-05-22] MEDS: metFORMIN 500 MG TABLET PO SCH ×2 (09:23→16:31)
[2020-05-22] MEDS: lisinopriL 2.5 MG TABLET PO SCH (09:23)
[2020-05-22] MEDS: METOPROLOL SUCCINATE XL 25 MG TABLET PO SCH ×2 (09:23→22:26)
[2020-05-22] MEDS: MULTIVITAMIN (CENTRUM) TABLET PO SCH (09:23)
[2020-05-22] MEDS: ASPIRIN EC 81 MG TABLET PO SCH (09:24)
[2020-05-22] MEDS: glipiZIDE 5 MG TABLET PO SCH (09:24)
[2020-05-22] MEDS: INSULIN GLARGINE 100 UNIT/ML SUBCUT SCH (22:29)
[2020-05-23] MEDS: HYDROmorphone 2 MG/1 ML VIAL IV PRN ×5 (00:04→13:23)
[2020-05-23] MEDS: lisinopriL 2.5 MG TABLET PO SCH (09:46)
[2020-05-23] MEDS: glipiZIDE 5 MG TABLET PO SCH (09:46)
[2020-05-23] MEDS: PANTOPRAZOLE 40 MG TABLET PO SCH (09:46)
[2020-05-23] MEDS: MULTIVITAMIN (CENTRUM) TABLET PO SCH (09:46)
[2020-05-23] MEDS: GABAPENTIN 300 MG CAPSULE PO SCH (09:46)
[2020-05-23] MEDS: DOCUSATE SODIUM 100 MG CAPSULE PO SCH (09:46)
[2020-05-23] MEDS: metFORMIN 500 MG TABLET PO SCH (09:46)
[2020-05-23] MEDS: POLYETHYLENE GLYCOL POWDER 17 GM PACK PO SCH (09:46)
[2020-05-23] MEDS: INSULIN REGULAR 100 UNIT/ML SUBCUT SCH ×2 (09:47→12:14)
[2020-05-23] MEDS: INSULIN LISPRO 100 UNIT/ML SUBCUT SCH ×2 (09:47→12:14)
[2020-05-23] MEDS: ASPIRIN EC 81 MG TABLET PO SCH (09:47)
[2020-05-23] MEDS: METOPROLOL SUCCINATE XL 25 MG TABLET PO SCH (09:47)
[2020-05-23 13:41] VITALS: BP 118/68
== END 2020-05-23 15:55 | disposition swing bed (61) | DRG 876 ==
LOC: N.OR 08:58 → N.SDSINP 09:05 → N.3E 15:10
PROVIDERS: ADMIT Surgery; ATTEND Surgery

== ENCOUNTER 2020-10-04 10:41 | Inpatient (IN) ==
[2020-10-04 11:55] LABS: Basophils % 0.3 % (0.0-0.8); Eosinophils # 0.1 10*3/uL (0.0-0.87); Eosinophils % 0.7 % (0.00-10.9); Hematocrit 36.9 VOL% (42.0-52.0); Hemoglobin 11.7 GM/DL (14.0-18.0); Immature Granulocytes % 0.5 %; Immature Granulocytes Absolute 0.06 #; Lymphocytes # 1.2 10*3/uL (1.4-4.0); Lymphocytes % 9.1 % (21.2-54.2); Mean Corpuscular HGB Conc 31.7 GM/DL (32-36); Mean Corpuscular Volume 84.4 FL (87-102); Monocytes % 6.1 % (1.7-12.7); Neutrophils % 83.3 % (38.7-73.9); Platelet Count 408 T/CUMM (130-400); Red Blood Count 4.37 MC/CUMM (3.8-5.5); Red Cell Distribution Width 17.5 % (9.3-17.3)
[2020-10-04 12:06] LABS: INR 1.1; PT Patient Result 11.8 SECS (9.8-11.9)
[2020-10-04 12:20] LABS: Alanine Aminotransferase 24 U/L (16-61); Albumin 2.9 G/DL (3.4-5.0); Alkaline Phosphatase 116 U/L (45-117); Aspartate Amino Transferase 35 U/L (0-37); Blood Urea Nitrogen 11 MG/DL (7-18); Calcium 9.1 MG/DL (8.5-10.1); Carbon Dioxide 27 MMOL/L (21-32); Estimated Glom Filtration Rate 140 ML/MIN; Glucose 110 MG/DL (74-106); Potassium 4.5 MMOL/L (3.5-5.1); Sodium 136 MMOL/L (136-145); Total Protein 9.2 G/DL (5.0-7.5); Troponin I < 0.015 NG/ML (0.00-0.045)
[2020-10-04] MEDS ORDERED: VANCOMYCIN INJ 1,000 MG in SODIUM CHLORIDE 0.9% 250 ML IV STA (13:13)
[2020-10-04] MEDS ORDERED: HYDROmorphone 2 MG/1 ML VIAL IV PRN (13:14)
[2020-10-04] MEDS ORDERED: ACETAMINOPHEN 325 MG TABLET PO PRN (13:14)
[2020-10-04] MEDS ORDERED: PIPERACILLIN/TAZOBACTAM 3,375 MG in SODIUM CHLORIDE 0.9% 100 ML IV STA (14:08)
[2020-10-04] MEDS ORDERED: CALCIUM CHLORIDE 1,000 MG/10 ML SYRINGE IV ONE (14:52)
[2020-10-04] MEDS: LACTATED RINGERS 1,000 ML IV SCH (16:25)
[2020-10-04] MEDS: VANCOMYCIN INJ 1,500 MG in SODIUM CHLORIDE 0.9% 500 ML IV SCH (21:27)
[2020-10-05 05:56] LABS: Basophils % 0.2 % (0.0-0.8); Eosinophils # 0.2 10*3/uL (0.0-0.87); Eosinophils % 1.9 % (0.00-10.9); Hemoglobin 10.2 GM/DL (14.0-18.0); Immature Granulocytes % 0.4 %; Immature Granulocytes Absolute 0.04 #; Lymphocytes # 1.6 10*3/uL (1.4-4.0); Lymphocytes % 15.6 % (21.2-54.2); Mean Corpuscular HGB Conc 30.9 GM/DL (32-36); Mean Corpuscular Volume 85.3 FL (87-102); Mean Platelet Volume 8.7 FL (9.6-12.0); Monocytes % 7.2 % (1.7-12.7); Neutrophils % 74.7 % (38.7-73.9); Platelet Count 439 T/CUMM (130-400); Red Blood Count 3.87 MC/CUMM (3.8-5.5); Red Cell Distribution Width 17.2 % (9.3-17.3); White Blood Count 10.2 T/CUMM (4-12)
[2020-10-05 06:18] LABS: Albumin 2.5 G/DL (3.4-5.0); Osmolality,Calculated 274.7 MOS/KG (273-304); Potassium 3.6 MMOL/L (3.5-5.1); Total Protein 8.1 G/DL (5.0-7.5)
[2020-10-05] MEDS: HYDROmorphone 2 MG/1 ML VIAL IV PRN ×4 (07:36→23:44)
[2020-10-05] MEDS: PANTOPRAZOLE 40 MG TABLET PO SCH (08:56)
[2020-10-05] MEDS: VANCOMYCIN INJ 1,500 MG in SODIUM CHLORIDE 0.9% 500 ML IV SCH ×2 (08:56→23:43)
[2020-10-05] MEDS: INSULIN LISPRO 100 UNIT/ML SUBCUT SCH ×2 (12:40→16:54)
[2020-10-05] MEDS: LACTATED RINGERS 1,000 ML IV SCH (13:19)
[2020-10-06] MEDS: INSULIN LISPRO 100 UNIT/ML SUBCUT SCH ×5 (01:08→21:13)
[2020-10-06] MEDS: HYDROmorphone 2 MG/1 ML VIAL IV PRN ×5 (03:12→22:28)
[2020-10-06] MEDS: LACTATED RINGERS 1,000 ML IV SCH ×3 (05:06→22:38)
[2020-10-06] MEDS: PANTOPRAZOLE 40 MG TABLET PO SCH (08:48)
[2020-10-06] MEDS: VANCOMYCIN INJ 1,500 MG in SODIUM CHLORIDE 0.9% 500 ML IV SCH (09:40)
[2020-10-07] MEDS: HYDROmorphone 2 MG/1 ML VIAL IV PRN ×6 (04:23→21:04)
[2020-10-07] MEDS: VANCOMYCIN INJ 1,500 MG in SODIUM CHLORIDE 0.9% 500 ML IV SCH (05:11)
[2020-10-07 05:32] LABS: Calcium 9.2 MG/DL (8.5-10.1); Osmolality,Calculated 273.7 MOS/KG (273-304); Potassium 3.6 MMOL/L (3.5-5.1)
[2020-10-07] MEDS: INSULIN LISPRO 100 UNIT/ML SUBCUT SCH ×4 (08:53→21:47)
[2020-10-07] MEDS: PANTOPRAZOLE 40 MG TABLET PO SCH (09:00)
[2020-10-07] MEDS ORDERED: fentaNYL 100 MCG/2 ML VIAL ONE (10:52)
[2020-10-07] MEDS ORDERED: LACTATED RINGERS 1,000 ML IV SCH (11:00)
[2020-10-07] MEDS ORDERED: ETOMIDATE 40 MG/20 ML VIAL IV ONE (11:06)
[2020-10-07] MEDS ORDERED: LIDOCAINE 2% 5 ML VIAL ONE (11:29)
[2020-10-07] MEDS ORDERED: ROCURONIUM 50 MG/5 ML VIAL IV ONE (11:29)
[2020-10-07] MEDS ORDERED: propofoL 200 MG/20 ML VIAL IV ONE (11:29)
[2020-10-07] MEDS ORDERED: NEOSTIGMINE 10 MG/10 ML VIAL ONE ×3 (11:55)
[2020-10-07] MEDS ORDERED: GLYCOPYRROLATE 0.4 MG/2 ML VIAL ONE (11:55)
[2020-10-07] MEDS: LACTATED RINGERS 1,000 ML IV SCH (12:05)
[2020-10-07] MEDS ORDERED: ONDANSETRON 4 MG/2 ML VIAL IV PRN (13:06)
[2020-10-08] MEDS: VANCOMYCIN INJ 1,500 MG in SODIUM CHLORIDE 0.9% 500 ML IV SCH ×2 (00:04→17:02)
[2020-10-08] MEDS: HYDROmorphone 2 MG/1 ML VIAL IV PRN ×5 (05:56→23:44)
[2020-10-08] MEDS: INSULIN LISPRO 100 UNIT/ML SUBCUT SCH ×4 (07:50→21:38)
[2020-10-08] MEDS: LACTATED RINGERS 1,000 ML IV SCH (08:31)
[2020-10-08] MEDS: PANTOPRAZOLE 40 MG TABLET PO SCH (08:32)
[2020-10-08] MEDS: METOPROLOL SUCCINATE XL 50 MG TABLET PO SCH (08:32)
[2020-10-08] MEDS: LOSARTAN 25 MG TABLET PO SCH (08:32)
[2020-10-09] MEDS: LACTATED RINGERS 1,000 ML IV SCH (01:32)
[2020-10-09] MEDS: HYDROmorphone 2 MG/1 ML VIAL IV PRN ×5 (02:53→18:48)
[2020-10-09] MEDS: LOSARTAN 25 MG TABLET PO SCH (09:13)
[2020-10-09] MEDS: METOPROLOL SUCCINATE XL 50 MG TABLET PO SCH (09:13)
[2020-10-09] MEDS: PANTOPRAZOLE 40 MG TABLET PO SCH (09:13)
[2020-10-09] MEDS: INSULIN LISPRO 100 UNIT/ML SUBCUT SCH ×4 (09:14→20:11)
[2020-10-09] MEDS: VANCOMYCIN INJ 1,500 MG in SODIUM CHLORIDE 0.9% 500 ML IV SCH (12:06)
[2020-10-10] MEDS: LACTATED RINGERS 1,000 ML IV SCH ×2 (03:36→16:22)
[2020-10-10] MEDS: HYDROmorphone 2 MG/1 ML VIAL IV PRN ×3 (03:37→20:23)
[2020-10-10] MEDS: LOSARTAN 25 MG TABLET PO SCH (08:46)
[2020-10-10] MEDS: METOPROLOL SUCCINATE XL 50 MG TABLET PO SCH (08:46)
[2020-10-10] MEDS: PANTOPRAZOLE 40 MG TABLET PO SCH (08:46)
[2020-10-10] MEDS: INSULIN LISPRO 100 UNIT/ML SUBCUT SCH ×4 (09:35→20:23)
[2020-10-10] MEDS: MUPIROCIN 2% OINT 22 GM TUBE TOP SCH (14:42)
[2020-10-11] MEDS: HYDROmorphone 2 MG/1 ML VIAL IV PRN ×5 (00:18→20:08)
[2020-10-11] MEDS: MUPIROCIN 2% OINT 22 GM TUBE TOP SCH ×3 (03:01→21:42)
[2020-10-11] MEDS: LACTATED RINGERS 1,000 ML IV SCH ×3 (06:07→21:41)
[2020-10-11] MEDS: INSULIN LISPRO 100 UNIT/ML SUBCUT SCH ×4 (08:29→21:41)
[2020-10-11] MEDS: PANTOPRAZOLE 40 MG TABLET PO SCH (09:06)
[2020-10-11] MEDS: LOSARTAN 25 MG TABLET PO SCH (09:06)
[2020-10-11] MEDS: METOPROLOL SUCCINATE XL 50 MG TABLET PO SCH (09:06)
[2020-10-12] MEDS: HYDROmorphone 2 MG/1 ML VIAL IV PRN ×5 (00:13→23:09)
[2020-10-12] MEDS: PANTOPRAZOLE 40 MG TABLET PO SCH (09:12)
[2020-10-12] MEDS: METOPROLOL SUCCINATE XL 50 MG TABLET PO SCH (09:12)
[2020-10-12] MEDS: LOSARTAN 25 MG TABLET PO SCH (09:12)
[2020-10-12] MEDS: LACTATED RINGERS 1,000 ML IV SCH (09:56)
[2020-10-12] MEDS: MUPIROCIN 2% OINT 22 GM TUBE TOP SCH ×2 (10:07→20:03)
[2020-10-12] MEDS: INSULIN LISPRO 100 UNIT/ML SUBCUT SCH ×4 (10:08→20:03)
[2020-10-12] MEDS: ENOXAPARIN 40 MG/0.4 ML SYRINGE SUBCUT SCH (12:14)
[2020-10-13] MEDS: HYDROmorphone 2 MG/1 ML VIAL IV PRN ×4 (06:25→21:03)
[2020-10-13] MEDS: INSULIN LISPRO 100 UNIT/ML SUBCUT SCH ×4 (07:59→21:03)
[2020-10-13] MEDS: PANTOPRAZOLE 40 MG TABLET PO SCH (08:30)
[2020-10-13] MEDS: LOSARTAN 25 MG TABLET PO SCH (08:30)
[2020-10-13] MEDS: METOPROLOL SUCCINATE XL 50 MG TABLET PO SCH (08:30)
[2020-10-13] MEDS: MUPIROCIN 2% OINT 22 GM TUBE TOP SCH ×2 (11:48→21:03)
[2020-10-13] MEDS: ENOXAPARIN 40 MG/0.4 ML SYRINGE SUBCUT SCH (15:49)
[2020-10-14] MEDS: HYDROmorphone 2 MG/1 ML VIAL IV PRN ×3 (01:06→20:36)
[2020-10-14] MEDS: INSULIN LISPRO 100 UNIT/ML SUBCUT SCH ×4 (07:53→20:54)
[2020-10-14] MEDS: METOPROLOL SUCCINATE XL 50 MG TABLET PO SCH (08:34)
[2020-10-14] MEDS: LOSARTAN 25 MG TABLET PO SCH (08:34)
[2020-10-14] MEDS: PANTOPRAZOLE 40 MG TABLET PO SCH (08:35)
[2020-10-14] MEDS: MUPIROCIN 2% OINT 22 GM TUBE TOP SCH ×2 (08:36→20:53)
[2020-10-14 10:28] LABS: Basophils % 0.2 % (0.0-0.8); Eosinophils # 0.1 10*3/uL (0.0-0.87); Hematocrit 26.1 VOL% (42.0-52.0); Hemoglobin 8.3 GM/DL (14.0-18.0); Immature Granulocytes % 0.7 %; Immature Granulocytes Absolute 0.08 #; Lymphocytes # 1.1 10*3/uL (1.4-4.0); Lymphocytes % 8.9 % (21.2-54.2); Mean Corpuscular HGB Conc 31.8 GM/DL (32-36); Mean Corpuscular Volume 83.7 FL (87-102); Mean Platelet Volume 9.5 FL (9.6-12.0); Monocytes % 7.4 % (1.7-12.7); Neutrophils % 81.8 % (38.7-73.9); Platelet Count 529 T/CUMM (130-400); Red Blood Count 3.12 MC/CUMM (3.8-5.5); Red Cell Distribution Width 18.4 % (9.3-17.3); White Blood Count 12.2 T/CUMM (4-12)
[2020-10-14 10:42] LABS: Osmolality,Calculated 275.7 MOS/KG (273-304); Potassium 3.7 MMOL/L (3.5-5.1)
[2020-10-14] MEDS: ENOXAPARIN 40 MG/0.4 ML SYRINGE SUBCUT SCH (14:22)
[2020-10-15] MEDS: HYDROmorphone 2 MG/1 ML VIAL IV PRN ×2 (01:55→08:33)
[2020-10-15] MEDS ORDERED: VANCOMYCIN INJ 1,000 MG in SODIUM CHLORIDE 0.9% 250 ML IV ONE (06:00)
[2020-10-15] MEDS: INSULIN LISPRO 100 UNIT/ML SUBCUT SCH ×4 (07:49→21:26)
[2020-10-15] MEDS: PANTOPRAZOLE 40 MG TABLET PO SCH (08:55)
[2020-10-15] MEDS: LOSARTAN 25 MG TABLET PO SCH (08:55)
[2020-10-15] MEDS: MUPIROCIN 2% OINT 22 GM TUBE TOP SCH ×2 (08:55→21:10)
[2020-10-15] MEDS: METOPROLOL SUCCINATE XL 50 MG TABLET PO SCH (08:55)
[2020-10-15] MEDS: ENOXAPARIN 40 MG/0.4 ML SYRINGE SUBCUT SCH (11:56)
[2020-10-15] MEDS ORDERED: fentaNYL 100 MCG/2 ML VIAL ONE (12:03)
[2020-10-15] MEDS ORDERED: MIDAZOLAM 2 MG/2 ML VIAL ONE (12:03)
[2020-10-15] MEDS ORDERED: propofoL 200 MG/20 ML VIAL IV ONE (12:45)
[2020-10-15] MEDS ORDERED: LIDOCAINE 2% 5 ML VIAL ONE (12:45)
[2020-10-15] MEDS ORDERED: ONDANSETRON 4 MG/2 ML VIAL ONE (12:45)
[2020-10-15] MEDS ORDERED: ETOMIDATE 40 MG/20 ML VIAL IV ONE (12:50)
[2020-10-15] MEDS ORDERED: LACTATED RINGERS 1,000 ML IV SCH (13:00)
[2020-10-15] MEDS ORDERED: ESMOLOL 100 MG/10 ML VIAL IV ONE (13:03)
[2020-10-15] MEDS ORDERED: METOPROLOL TARTRATE 5 MG/5 ML VIAL IV ONE (13:15)
[2020-10-15] MEDS ORDERED: ceFAZolin 1,000 MG VIAL ONE (13:27)
[2020-10-15] MEDS ORDERED: PHENYLEPHRINE 1 MG/10 ML SYRINGE IV ONE (13:28)
[2020-10-15] MEDS ORDERED: SEVOFLURANE 1 UNIT/15 MINUTE INH ONE (14:17)
[2020-10-15 14:53] LABS: Hematocrit 28.8 VOL% (42.0-52.0); Hemoglobin 8.7 GM/DL (14.0-18.0)
[2020-10-15] MEDS ORDERED: DEXTROSE 50% 25 GM/50 ML VIAL IV PRN (15:48)
[2020-10-15] MEDS ORDERED: GLUCAGON 1 MG VIAL IM PRN (15:48)
[2020-10-16] MEDS: INSULIN LISPRO 100 UNIT/ML SUBCUT SCH ×4 (07:55→21:32)
[2020-10-16] MEDS: METOPROLOL SUCCINATE XL 50 MG TABLET PO SCH (08:38)
[2020-10-16] MEDS: PANTOPRAZOLE 40 MG TABLET PO SCH (08:38)
[2020-10-16] MEDS: LOSARTAN 25 MG TABLET PO SCH (08:38)
[2020-10-16] MEDS: MUPIROCIN 2% OINT 22 GM TUBE TOP SCH ×2 (08:39→21:33)
[2020-10-16 09:22] LABS: Basophils % 0.2 % (0.0-0.8); Eosinophils # 0.1 10*3/uL (0.0-0.87); Hematocrit 27.2 VOL% (42.0-52.0); Hemoglobin 8.3 GM/DL (14.0-18.0); Immature Granulocytes % 0.6 %; Immature Granulocytes Absolute 0.06 #; Lymphocytes # 1.2 10*3/uL (1.4-4.0); Lymphocytes % 11.4 % (21.2-54.2); Mean Corpuscular HGB Conc 30.5 GM/DL (32-36); Mean Corpuscular Volume 85.3 FL (87-102); Mean Platelet Volume 8.8 FL (9.6-12.0); Neutrophils % 80.8 % (38.7-73.9); Platelet Count 554 T/CUMM (130-400); Red Blood Count 3.19 MC/CUMM (3.8-5.5); Red Cell Distribution Width 18.6 % (9.3-17.3); White Blood Count 10.4 T/CUMM (4-12)
[2020-10-16 09:41] LABS: Calcium 8.8 MG/DL (8.5-10.1); Osmolality,Calculated 274.8 MOS/KG (273-304); Potassium 3.8 MMOL/L (3.5-5.1)
[2020-10-16] MEDS: fentaNYL 2 MCG/ROPIV 0.2% EPID 100 ML EPIDURAL SCH ×2 (10:34→10:35)
[2020-10-16] MEDS: ONDANSETRON 4 MG/2 ML VIAL IV PRN (18:22)
[2020-10-17] MEDS: HYDROmorphone 2 MG/1 ML VIAL IV PRN ×4 (04:34→19:11)
[2020-10-17] MEDS: fentaNYL 2 MCG/ROPIV 0.2% EPID 100 ML EPIDURAL SCH (06:20)
[2020-10-17] MEDS: LOSARTAN 25 MG TABLET PO SCH (10:19)
[2020-10-17] MEDS: METOPROLOL SUCCINATE XL 50 MG TABLET PO SCH (10:19)
[2020-10-17] MEDS: MUPIROCIN 2% OINT 22 GM TUBE TOP SCH ×2 (10:20→21:01)
[2020-10-17] MEDS: PANTOPRAZOLE 40 MG TABLET PO SCH (10:20)
[2020-10-17] MEDS: INSULIN LISPRO 100 UNIT/ML SUBCUT SCH ×4 (10:32→21:01)
[2020-10-18] MEDS: fentaNYL 2 MCG/ROPIV 0.2% EPID 100 ML EPIDURAL SCH (01:22)
[2020-10-18] MEDS: HYDROmorphone 2 MG/1 ML VIAL IV PRN ×2 (04:31→21:09)
[2020-10-18] MEDS: INSULIN LISPRO 100 UNIT/ML SUBCUT SCH ×4 (09:39→21:05)
[2020-10-18] MEDS: MUPIROCIN 2% OINT 22 GM TUBE TOP SCH ×2 (09:40→21:44)
[2020-10-18] MEDS: LOSARTAN 25 MG TABLET PO SCH (09:41)
[2020-10-18] MEDS: METOPROLOL SUCCINATE XL 50 MG TABLET PO SCH (09:41)
[2020-10-18] MEDS: PANTOPRAZOLE 40 MG TABLET PO SCH (10:05)
[2020-10-18] MEDS: ENOXAPARIN 40 MG/0.4 ML SYRINGE SUBCUT SCH (11:52)
[2020-10-18] MEDS: ONDANSETRON 4 MG/2 ML VIAL IV PRN (21:07)
[2020-10-19] MEDS: HYDROmorphone 2 MG/1 ML VIAL IV PRN ×3 (03:50→19:55)
[2020-10-19] MEDS: INSULIN LISPRO 100 UNIT/ML SUBCUT SCH ×4 (08:13→20:33)
[2020-10-19] MEDS: LOSARTAN 25 MG TABLET PO SCH (09:40)
[2020-10-19] MEDS: PANTOPRAZOLE 40 MG TABLET PO SCH (09:40)
[2020-10-19] MEDS: MUPIROCIN 2% OINT 22 GM TUBE TOP SCH ×2 (09:40→20:32)
[2020-10-19] MEDS: METOPROLOL SUCCINATE XL 50 MG TABLET PO SCH (09:40)
[2020-10-19] MEDS: ENOXAPARIN 40 MG/0.4 ML SYRINGE SUBCUT SCH (13:03)
[2020-10-19] MEDS: ONDANSETRON 4 MG/2 ML VIAL IV PRN (14:40)
[2020-10-20] MEDS: HYDROmorphone 2 MG/1 ML VIAL IV PRN ×2 (00:53→07:51)
[2020-10-20] MEDS: INSULIN LISPRO 100 UNIT/ML SUBCUT SCH ×2 (07:55→12:02)
[2020-10-20] MEDS: PANTOPRAZOLE 40 MG TABLET PO SCH (08:11)
[2020-10-20] MEDS: LOSARTAN 25 MG TABLET PO SCH (08:11)
[2020-10-20] MEDS: METOPROLOL SUCCINATE XL 50 MG TABLET PO SCH (08:11)
[2020-10-20] MEDS: MUPIROCIN 2% OINT 22 GM TUBE TOP SCH (09:41)
[2020-10-20] MEDS: ENOXAPARIN 40 MG/0.4 ML SYRINGE SUBCUT SCH (11:39)
[2020-10-20 12:50] VITALS: BP 124/98
== END 2020-10-20 13:20 | DRG 240 ==
LOC: N.ED 10:41 → N.EDINP 13:14 → N.3E 15:37
PROVIDERS: ADMIT Surgery; ATTEND Surgery

== ENCOUNTER 2021-01-22 06:49 | Inpatient (IN) ==
[2021-01-22] MEDS ORDERED: VANCOMYCIN INJ 1,000 MG in SODIUM CHLORIDE 0.9% 250 ML IV ONE (07:00)
[2021-01-22] MEDS ORDERED: ACETAMINOPHEN 500 MG TABLET PO ONE (07:32)
[2021-01-22] MEDS ORDERED: FAMOTIDINE 20 MG TABLET PO ONE (07:32)
[2021-01-22] MEDS: LACTATED RINGERS 1,000 ML IV SCH ×4 (07:50→23:12)
[2021-01-22] MEDS ORDERED: MORPHINE 2 MG/1 ML SYRINGE ONE (08:25)
[2021-01-22] MEDS ORDERED: MORPHINE 2 MG/1 ML SYRINGE IV ONE ×2 (08:26→09:06)
[2021-01-22] MEDS ORDERED: ROCURONIUM 50 MG/5 ML VIAL IV ONE (09:18)
[2021-01-22] MEDS ORDERED: fentaNYL 100 MCG/2 ML VIAL ONE ×2 (09:18→10:34)
[2021-01-22] MEDS ORDERED: LIDOCAINE 2% 5 ML VIAL ONE (09:18)
[2021-01-22] MEDS ORDERED: MIDAZOLAM 2 MG/2 ML VIAL ONE (09:18)
[2021-01-22] MEDS ORDERED: propofoL 200 MG/20 ML VIAL IV ONE (09:18)
[2021-01-22] MEDS ORDERED: ONDANSETRON 4 MG/2 ML VIAL ONE (10:18)
[2021-01-22] MEDS ORDERED: SEVOFLURANE 1 UNIT/15 MINUTE INH ONE ×4 (10:18→10:59)
[2021-01-22] MEDS ORDERED: KETOROLAC 30 MG/1 ML VIAL ONE (10:23)
[2021-01-22] MEDS ORDERED: METOPROLOL TARTRATE 5 MG/5 ML VIAL IV ONE (10:35)
[2021-01-22] MEDS ORDERED: ONDANSETRON 4 MG/2 ML VIAL IV PRN (11:12)
[2021-01-22] MEDS ORDERED: BISACODYL 5 MG TABLET PO PRN (11:12)
[2021-01-22] MEDS ORDERED: ACETAMINOPHEN 325 MG TABLET PO PRN (11:12)
[2021-01-22] MEDS ORDERED: KETOROLAC 10 MG TABLET PO PRN (11:12)
[2021-01-22] MEDS ORDERED: NALOXONE 0.4 MG/ML VIAL IV PRN (11:12)
[2021-01-22] MEDS: HYDROmorphone PCA 30 MG/30 ML SYRINGE IV SCH (12:00)
[2021-01-22] MEDS ORDERED: ALBUTEROL 2.5 MG/3 ML NEB RESP TX PRN (19:00)
[2021-01-22] MEDS: METOPROLOL SUCCINATE XL 50 MG TABLET PO SCH (21:34)
[2021-01-23] MEDS: LACTATED RINGERS 1,000 ML IV SCH ×4 (01:08→12:34)
[2021-01-23 05:10] LABS: Basophils % 0.3 % (0.0-0.8); Eosinophils # 0.1 10*3/uL (0.0-0.87); Eosinophils % 1.2 % (0.00-10.9); Hematocrit 31.7 VOL% (42.0-52.0); Hemoglobin 9.4 GM/DL (14.0-18.0); Immature Granulocytes % 0.6 %; Immature Granulocytes Absolute 0.06 #; Lymphocytes # 1.9 10*3/uL (1.4-4.0); Lymphocytes % 18.6 % (21.2-54.2); Mean Corpuscular HGB Conc 29.7 GM/DL (32-36); Mean Platelet Volume 9.3 FL (9.6-12.0); Monocytes % 9.1 % (1.7-12.7); Neutrophils % 70.2 % (38.7-73.9); Platelet Count 414 T/CUMM (130-400); Red Blood Count 3.82 MC/CUMM (3.8-5.5); Red Cell Distribution Width 17.6 % (9.3-17.3); White Blood Count 10.3 T/CUMM (4-12)
[2021-01-23] MEDS: ENOXAPARIN 40 MG/0.4 ML SYRINGE SUBCUT SCH (05:28)
[2021-01-23 05:32] LABS: Calcium 8.4 MG/DL (8.5-10.1); Osmolality,Calculated 283.3 MOS/KG (273-304); Potassium 3.8 MMOL/L (3.5-5.1)
[2021-01-23 05:33] LABS: Hypochromasia 1+; Microcytosis 1+; Platelet Estimate Adequate
[2021-01-23] MEDS: ASPIRIN CHEW 81 MG TABLET PO SCH (09:16)
[2021-01-23] MEDS: METOPROLOL SUCCINATE XL 50 MG TABLET PO SCH ×2 (09:16→20:42)
[2021-01-23] MEDS: PANTOPRAZOLE 40 MG TABLET PO SCH (09:16)
[2021-01-23] MEDS: LOSARTAN 25 MG TABLET PO SCH (09:16)
[2021-01-23] MEDS: HYDROmorphone PCA 30 MG/30 ML SYRINGE IV SCH (11:30)
[2021-01-23] MEDS: ATORVASTATIN 40 MG TABLET PO SCH (20:42)
[2021-01-24] MEDS: ENOXAPARIN 40 MG/0.4 ML SYRINGE SUBCUT SCH (05:19)
[2021-01-24] MEDS: PANTOPRAZOLE 40 MG TABLET PO SCH (10:07)
[2021-01-24] MEDS: ASPIRIN CHEW 81 MG TABLET PO SCH (10:07)
[2021-01-24] MEDS: LOSARTAN 25 MG TABLET PO SCH (10:07)
[2021-01-24] MEDS: METOPROLOL SUCCINATE XL 50 MG TABLET PO SCH ×2 (10:07→20:50)
[2021-01-24] MEDS: LACTATED RINGERS 1,000 ML IV SCH (12:38)
[2021-01-24] MEDS: NITROGLYCERIN SL 0.4 MG TABLET SL PRN ×3 (18:20→18:34)
[2021-01-24] MEDS: HYDROmorphone PCA 30 MG/30 ML SYRINGE IV SCH (19:45)
[2021-01-24] MEDS: ATORVASTATIN 40 MG TABLET PO SCH (20:50)
[2021-01-25] MEDS: ENOXAPARIN 40 MG/0.4 ML SYRINGE SUBCUT SCH (05:35)
[2021-01-25] MEDS: PANTOPRAZOLE 40 MG TABLET PO SCH (10:03)
[2021-01-25] MEDS: LOSARTAN 25 MG TABLET PO SCH (10:03)
[2021-01-25] MEDS: ASPIRIN CHEW 81 MG TABLET PO SCH (10:03)
[2021-01-25] MEDS: METOPROLOL SUCCINATE XL 50 MG TABLET PO SCH ×2 (10:03→21:13)
[2021-01-25] MEDS: LACTATED RINGERS 1,000 ML IV SCH (17:38)
[2021-01-25] MEDS: ATORVASTATIN 40 MG TABLET PO SCH (21:13)
[2021-01-25] MEDS: HYDROmorphone PCA 30 MG/30 ML SYRINGE IV SCH (22:11)
[2021-01-26] MEDS: ENOXAPARIN 40 MG/0.4 ML SYRINGE SUBCUT SCH (05:59)
[2021-01-26] MEDS: LACTATED RINGERS 1,000 ML IV SCH ×2 (06:47→14:21)
[2021-01-26] MEDS: LOSARTAN 25 MG TABLET PO SCH (08:49)
[2021-01-26] MEDS: ASPIRIN CHEW 81 MG TABLET PO SCH (08:49)
[2021-01-26] MEDS: METOPROLOL SUCCINATE XL 50 MG TABLET PO SCH ×2 (08:49→20:01)
[2021-01-26] MEDS: PANTOPRAZOLE 40 MG TABLET PO SCH (08:49)
[2021-01-26] MEDS: HYDROmorphone PCA 30 MG/30 ML SYRINGE IV SCH (14:21)
[2021-01-26] MEDS: ATORVASTATIN 40 MG TABLET PO SCH (20:01)
[2021-01-27] MEDS: ENOXAPARIN 40 MG/0.4 ML SYRINGE SUBCUT SCH (05:21)
[2021-01-27] MEDS: PANTOPRAZOLE 40 MG TABLET PO SCH (08:46)
[2021-01-27] MEDS: METOPROLOL SUCCINATE XL 50 MG TABLET PO SCH (08:46)
[2021-01-27] MEDS: ASPIRIN CHEW 81 MG TABLET PO SCH (08:46)
[2021-01-27] MEDS: LOSARTAN 25 MG TABLET PO SCH (08:46)
[2021-01-27 11:25] VITALS: BP 152/88
== END 2021-01-27 16:11 | disposition swing bed (61) | DRG 475 ==
LOC: N.OR 06:49 → N.SDSINP 06:53 → N.3E 11:12 → EDSTATUS 12:15 → N.OR 13:06 → N.3E 16:06
PROVIDERS: ADMIT Surgery; ATTEND Surgery